=== PATIENT | female | born 1930 | race Caucasian/White ===

== ENCOUNTER 2017-04-25 19:06 | Emergency (ER) | payer MEDICARE, OTHER ==
[~2017-04-25 19:06] MED LIST: ALPRAZOLAM0.5 MG PO; ARICEPT10 MG PO; ASPIR 8181 MG PO; CEFTIN500 MG PO; CRESTOR 10 MG T10 MG PO; MELOXICAM7.5 MG PO; NEXIUM40 MG PO; PERCOCET 5-3251 EACH PO; SEROQUEL25 MG PO; SEROQUEL50 MG PO; TOPROL XL50 MG PO
[2017-04-25 20:09] LABS: HEMOGLOBIN 13.3 gm/dl (12.3-15.3); RED BLOOD COUNT 4.15 M/UL (4.00-5.10); WHITE BLOOD COUNT 17.4 K/UL (4.5-11.0)
[2017-04-25 20:24] LABS: BUN/CREATININE RATIO 69 (0-10)
== END 2017-04-25 23:48 | disposition home or self-care (01) ==
LOC: ER1 19:06
PROVIDERS: Family Medicine
DX: J40 Bronchitis, not specified as acute or chronic (principal); N18.9 Chronic kidney disease, unspecified; D72.829 Elevated white blood cell count, unspecified; G30.9 Alzheimer's disease, unspecified; F02.80 Dementia in other diseases classified elsewhere, unspecified severity, without behavioral disturbance, psychotic disturbance, mood disturbance, and anxiety; Z95.5 Presence of coronary angioplasty implant and graft; Z79.899 Other long term (current) drug therapy
CPT/HCPCS: 36415; 51701; 71010; 80053; 81001; 85025; 87086; 96372; 99283; J0696